=== PATIENT | male | born 1980 | race Caucasian/White ===

== ENCOUNTER 2017-09-09 20:33 | Emergency (ER) | payer OTHER ==
[~2017-09-09] VITALS: Ht 177.8 cm; Wt 94.9 kg
[2017-09-09 21:05] VITALS: BP 138/78
--- NOTE | 2017-09-09 22:53 | NUR ---
pt ambulated to bed 10
--- NOTE | 2017-09-09 22:55 | NUR ---
AC/O BACK PAIN AFTER T/C ON THURSDAY 09/07. PT STATES PAIN 07/26. NO LOC AT TIME OF ACCIDENT. PT DENIES FEVER, CHEST PAIN OR SOB. PT AAOX4, STEADY GAIT. HR EVEN AND REGULAR, LUNGS SOUNDS CLEAR BILATERALLY. BED PLACED IN LOW POSITION. SIDERAILS UP. ER MD MADE AWARE OF STATUS.
[2017-09-10] MEDS ORDERED: KETOROLAC 30 MG/ML VIAL IM ONE (00:30)
--- NOTE | 2017-09-10 00:41 | NUR ---
PATIENT TAKEN TO CT WITH TECH VIA WHEELCHAIR.
[2017-09-10] MEDS ORDERED: ACETAMINOPHEN EXTRA STRENGTH 500 MG TAB PO ONE (01:15)
[2017-09-10] MEDS ORDERED: ACETAMINOPHEN EXTRA STRENGTH 500 MG TAB ONE (01:18)
[2017-09-10 01:36] VITALS: BP 121/59
--- NOTE | 2017-09-10 01:40 | NUR ---
Patient discharged with v/s stable. Written and verbal after care instructions given and explained. Patient alert, oriented and verbalized understanding of instructions. Ambulatory with steady gait. All questions addressed prior to discharge. ID band removed. Patient advised to follow up with PMD. Rx of IBU given. Patient educated on indication of medication including possible reaction and side effects. Opportunity to ask questions provided and answered.
== END 2017-09-10 01:40 | disposition home or self-care (01) ==
LOC: MED 20:33
DX: S39.012A Strain of muscle, fascia and tendon of lower back, initial encounter (principal); V43.52XA Car driver injured in collision with other type car in traffic accident, initial encounter; Y93.I9 Activity, other involving external motion; Y92.488 Other paved roadways as the place of occurrence of the external cause; Y99.8 Other external cause status
CPT/HCPCS: 72128; 72131; 99284; J1885

== ENCOUNTER 2021-11-25 11:21 | Emergency (ER) | payer OTHER ==
[~2021-11-25] VITALS: Ht 177.8 cm; Wt 99.8 kg
[2021-11-25 11:30] VITALS: BP 150/67
[2021-11-25] MEDS ORDERED: IBUP-2213 PO (12:54)
[2021-11-25 13:13] VITALS: BP 140/60
== END 2021-11-25 13:15 | disposition home or self-care (01) ==
LOC: MED 11:21
DX: S06.0X0A Concussion without loss of consciousness, initial encounter (principal); X58.XXXA Exposure to other specified factors, initial encounter; Y93.89 Activity, other specified; Y92.89 Other specified places as the place of occurrence of the external cause; Y99.8 Other external cause status
CPT/HCPCS: 99282

== ENCOUNTER 2022-03-08 17:10 | Emergency (ER) | payer OTHER ==
[~2022-03-08] VITALS: Ht 172.7 cm; Wt 77.1 kg
[~2022-03-08 17:10] MED LIST: IBUP-2213 PO
[2022-03-08 17:16] VITALS: BP 153/93
[2022-03-08] MEDS ORDERED: MECLIZINE 25 MG TAB PO ONE (18:05)
[2022-03-08] MEDS ORDERED: IBUP-2213 PO (19:01)
[2022-03-08] MEDS ORDERED: MECL-303 PO (19:01)
--- NOTE | 2022-03-08 19:13 | NUR ---
Patient discharged with v/s stable. Written and verbal after care instructions given and explained. Patient alert, oriented and verbalized understanding of instructions. Ambulatory with steady gait. All questions addressed prior to discharge. ID band removed. Patient advised to follow up with PMD. Rx of MOTRIN, ANTIVERT given. Patient educated on indication of medication including possible reaction and side effects. Opportunity to ask questions provided and answered.
== END 2022-03-08 19:13 | disposition home or self-care (01) ==
LOC: MED 17:10
DX: R51.9 Headache, unspecified (principal); R42 Dizziness and giddiness; Z79.899 Other long term (current) drug therapy
CPT/HCPCS: 70450; 99284; J8597